=== PATIENT | male | born 1950 | race Caucasian/White ===

== ENCOUNTER → 2016-10-30 | Outpatient (CLI) | payer MEDICARE ==
[~2016-10-30] MED LIST: ALL DAY ALLERGY10 M3 PO; AMARYL2 MG PO; AMITRYPTYLINE PO; ASPIRIN; ASPIRIN PO; CHANTIX PO; COMBIVENT INH14.7 GM INH; COMBIVENT U/D3 M2 INH; FLEXERIL10 MG PO; GLUCOPHAGE500 M1 PO; GLYNASE; GLYNASE PO; HYDROCODON-ACE1 EACH PO; JANUVIA PO; LEVEMIR SUBQ; LIPITOR; LIPITOR PO; LISINOPRIL PO; LISINOPRIL10 MG PO; LORTAB 10-5001 EACH PO; LORTAB 7.5-5001 TAB PO; METFORMIN PO; METOPROLOL SUCC50 MG PO; NAPROXEN PO; ONGLYZA5 MG PO; PERCOCET 7.5-31 EACH PO; PERCOCET5/325 PO; PRILOSEC20 M1 PO; PROVENTIL0.83 MG/ML INH; REQUIP1 MG PO; REQUIP2 MG PO; TRAMADOL HCL50 M1 PO; ULTRAM; ULTRAM PO; VICODIN; VICODIN PO
[2016-10-30 08:27] LABS: BUN/CREATININE RATIO 13.63; CALCIUM SERUM 8.9 mg/dL (8.4-10.2); CREATININE SERUM 1.1 mg/dL (0.6-1.4); GLOM FILT RATE Estimated 69.6 mL/min (>60); POTASSIUM 4.6 mmol/L (3.5-5.1)
== END | disposition home or self-care (01) ==
LOC: CLAB 06:58
PROVIDERS: Internal Medicine Endocrinology, Diabetes & Metabolism
DX: E05.90 Thyrotoxicosis, unspecified without thyrotoxic crisis or storm (principal); E11.9 Type 2 diabetes mellitus without complications
CPT/HCPCS: 36415; 80048; 83036; 84443